=== PATIENT | male | born 1965 | race African-American/Black ===

== ENCOUNTER 2017-05-10 17:55 | Inpatient (IN) | payer OTHER ==
[~2017-05-10] VITALS: Ht 177.8 cm; Wt 59.4 kg
--- NOTE | 2017-05-10 17:58 | NUR ---
PT CHAU FROM HOME TO ER BED 10. PER REPORT PT WAS FOUND INSIDE HIS HOUSE PASSED OUT, COVERED W/ URINE AND FECES, UPON ARRIVAL PT IS AWAKE BUT VERY LETHARGIC AND C/O PAIN ALL OVER. EMS STATES HYPOTENSIVE AND WAS GIVEN FLUIDS. PT IS STILL HYPOTENSIVE AND TACHYCARDIC BARGE HAND. DR CHRISTOPHER AT BEDSIDE FOR EVAL. W/ ORDERS RECIEVED WILL CARRY OUT.
[2017-05-10] MEDS ORDERED: IV NS 0.9% 1,000 ML ONE ×2 (17:59→18:05)
[2017-05-10] MEDS ORDERED: IV SET PRIMARY 1 EA INFUS.SET MC ONE (17:59)
[2017-05-10] MEDS ORDERED: IV SET PRIMARY PUMP SET 1 EA INFUS.SET MC ONE ×5 (18:06→21:57)
--- NOTE | 2017-05-10 18:10 | NUR ---
BLOOD SURAG RECHECK 252. DR CHRISTOPHER AWARE.
--- NOTE | 2017-05-10 18:11 | NUR ---
DR CHRISTOPHER AT BEDSIDE FOR EVAL.
[2017-05-10] MEDS ORDERED: IV NS 0.9% 1,000 ML BAG IV ONE ×3 (18:30→21:00)
[2017-05-10] MEDS ORDERED: BLOOD SUGAR DIAGNOSTIC 1 EACH STRIP IN ONE (18:30)
[2017-05-10 18:33] LABS: ABG BASE EXCESS -6.9 mmol/L; ABG OXYGEN SATURATION 91.6 % (92.0-98.5); ABG PCO2 26.1 mmHg (35.0-45.0); ABG PH 7.415 (7.350-7.450); ABG PO2 70.5 mmHg (75.0-100.0); COHb 0.6 % (0.5-1.5); MetHb 0.5 % (0.0-1.5); O2Hb 90.6 % (94.0-97.0); SITE, ABG Left Radial; VENT MODE, BG RA
[2017-05-10 19:05] LABS: THYROID STIMULATING HORMONE 4.863 uIU/mL (0.358-3.74)
[2017-05-10] MEDS ORDERED: MULT-24 PO (19:05)
[2017-05-10] MEDS ORDERED: LORA10TA7 PO (19:05)
[2017-05-10] MEDS ORDERED: PROP10TA10 PO (19:05)
[2017-05-10] MEDS ORDERED: DABI150C PO (19:05)
[2017-05-10] MEDS ORDERED: TRAM50TA2 PO (19:05)
[2017-05-10] MEDS ORDERED: SPIR100T3 PO (19:05)
[2017-05-10] MEDS ORDERED: AMYL1CAP56 PO (19:05)
[2017-05-10] MEDS ORDERED: FURO40TA5 PO (19:05)
--- NOTE | 2017-05-10 19:15 | NUR ---
DR CHRISTOPHER BACK AT BEDSIDE FOR CENTRAL LINE PLACEMENT.
--- NOTE | 2017-05-10 20:12 | NUR ---
RADIOLOGY AT BEDSIDE FOR CHEST XRAY.
[2017-05-10] MEDS: NOREPINEPHRINE 8 MG in IV D5W 500 ML IV PRN (20:20)
[2017-05-10 20:23] LABS: BASOPHILS % (AUTO) 0.4 % (0.0-2.0); EOSINOPHILS % (AUTO) 0.4 % (0.0-6.0); HEMATOCRIT 27 % (39-51); HEMOGLOBIN 8.9 g/dL (13.5-17.5); LYMPHOCYTES # (AUTO) 0.2 /CMM (0.8-4.8); LYMPHOCYTES % (AUTO) 21.3 % (20.0-44.0); MEAN CORPUSCULAR HEMOGLOBIN 37 PG (26.0-33.0); MEAN CORPUSCULAR HGB CONC 34 g/dl (31.0-36.0); MEAN CORPUSCULAR VOLUME 109 fL (80-96); NEUTROPHILS # (AUTO) 0.7 /CMM (1.8-8.9); NEUTROPHILS % (AUTO) 74.9 % (43.0-81.0); PLATELET COUNT (AUTO) 52 /CMM (150-450); RED BLOOD CELL COUNT(AUTO) 2.43 MIL/uL (4.5-6.0)
--- NOTE | 2017-05-10 20:29 | NUR ---
LEVOPHED DRIP TITRATED TO 20MCG. VITAL SIGNS UPDATED. WILL CONTINUE TO MONITOR.
[2017-05-10 20:30] LABS: WHITE BLOOD COUNT (AUTO) 0.9 K/uL (4.3-11.0)
[2017-05-10 20:38] LABS: ACETAMINOPHEN 5 ug/ml (10-30); ALANINE AMINOTRANSFERASE 77 U/L (12-78); ALCOHOL, BLOOD 32 mg/dL (0-0); ALKALINE PHOSPHATASE 246 U/L (46-116); ASPARTATE AMINOTRANSFERASE 235 U/L (15-37); BILIRUBIN,DIRECT 4.2 mg/dL (0.0-0.2); CALCIUM, SERUM 6.1 mg/dL (8.5-10.1); CARBON DIOXIDE 13 mmol/L (21-32); CHLORIDE 108 mmol/L (98-107); CREATININE 1.9 mg/dL (0.6-1.3); GLUCOSE 203 mg/dL (74-106); POTASSIUM 3.4 mmol/L (3.5-5.1); SODIUM SERUM 141 mmol/L (136-145); TOTAL PROTEIN, SERUM 4.1 g/dL (6.4-8.2); UREA NITROGEN, BLOOD 13 mg/dL (7-18)
[2017-05-10 20:40] LABS: TROPONIN I < 0.017 ng/mL (0.00-0.056)
[2017-05-10 20:43] LABS: ALBUMIN 1.4 g/dL (3.4-5.0); SERUM AMMONIA 55 umol/L (11-32)
[2017-05-10 20:44] LABS: SALICYLATE < 2.0 mg/dL (2.8-20.0)
--- NOTE | 2017-05-10 20:50 | NUR ---
B/P 87/56. LEVOPHED TITRATED TO 30 MCG. WILL CONTINUE TO MONITOR.
--- NOTE | 2017-05-10 20:52 | NUR ---
PT TO RADIOLOGY FOR HEAD, NECK AND ABDOMINAL CT SCAN VIA [facility].
[2017-05-10 20:53] LABS: INR > 10.00 (0.87-1.13); PARTIAL THROMBOPLASTIN TIME 68 SEC (23-34); PROTHROMBIN TIME > 120.0 SECS (9.5-12.7)
[2017-05-10] MEDS ORDERED: VANCOMYCIN 1 GM in IV D5W 250 ML IV ONE (21:00)
[2017-05-10] MEDS ORDERED: MEROPENEM 500 MG in IV NS 0.9% 50 ML IV ONE (21:00)
[2017-05-10 21:11] LABS: BAND % (MANUAL) 16 % (0.0-5.0); LYMPHOCYTES % (MANUAL) 6 % (16-48); MONOCYTES % (MANUAL) 3 % (0-11.0); NEUTROPHILS % (MANUAL) 75 (42-76)
[2017-05-10 21:33] LABS: PROTHROMBIN TIME > 120.0 SECS (9.5-12.7)
[2017-05-10 21:34] LABS: INR > 10.00 (0.87-1.13)
[2017-05-10] MEDS ORDERED: IV NS 0.9% 1,000 ML IV PRN (21:37)
[2017-05-10] MEDS ORDERED: PHYTONADIONE INJ 10 MG/1 ML AMPUL ONE (21:38)
[2017-05-10] MEDS ORDERED: IV D5W 50 ML IV ONE (21:38)
--- NOTE | 2017-05-10 21:50 | NUR ---
PT B/P 131/78. LEVOPHED DRIP TITRATED DOWN TO 10 MCG. WILL CONTINUE TO MONITOR.
[2017-05-10] MEDS ORDERED: IV NS 0.9% 50 ML IV ONE (21:56)
[2017-05-10] MEDS ORDERED: MEROPENEM 500 MG VIAL IV ONE (21:56)
[2017-05-10] MEDS ORDERED: VANCOMYCIN 1 GM VIAL ONE (21:57)
--- NOTE | 2017-05-10 21:57 | NUR ---
U/S TECH AT BEDSIDE FOR ABDOMINAL ULTRASOUND.
[2017-05-10] MEDS ORDERED: PHYTONADIONE INJ 10 MG in IV D5W 50 ML IV ONE (22:00)
[2017-05-10] MEDS ORDERED: MORPHINE SULFATE INJ 2 MG/ML DISP.SYRIN IV PRN (22:00)
[2017-05-10] MEDS ORDERED: MAG HYDROX/AL HYDROX/SIMETH 30 ML UDC PO PRN (22:00)
[2017-05-10] MEDS ORDERED: MAGNESIUM HYDROXIDE 30 ML UDC PO PRN (22:00)
[2017-05-10] MEDS ORDERED: MEROPENEM 500 MG in IV NS 0.9% 50 ML IV SCH (22:00)
[2017-05-10] MEDS ORDERED: ACETAMINOPHEN 325 MG TABLET PO PRN (22:00)
[2017-05-10] MEDS ORDERED: ONDANSETRON HCL/PF 4 MG/2 ML VIAL IVP PRN (22:00)
--- NOTE | 2017-05-10 22:35 | NUR ---
REPORT GIVEN TO MANASA AT ICU. PT TYREL GTRANSFER TO FLOOR.
[2017-05-10] MEDS ORDERED: LORAZEPAM INJ 2 MG/ML VIAL ONE ×2 (22:44→23:51)
--- NOTE | 2017-05-10 22:45 | NUR ---
PT NOTED TO BE HAVING SEIZURE. DR ABAD MADE AWARE.
--- NOTE | 2017-05-10 22:49 | NUR ---
PT IS HAVING SEIZURE. ATIVAN 2MG IVP GIVEN PER ERMD VERBAL ORDER.
--- NOTE | 2017-05-10 23:05 | NUR ---
PT B/P 61/30 LEVOPHED TITRATED BACK TO 30 MCG. WILL CONTINUE TO MONITOR.
[2017-05-10] MEDS ORDERED: LORAZEPAM INJ 2 MG/ML VIAL IV PRN (23:30)
--- NOTE | 2017-05-10 23:58 | NUR ---
PT AGITATED POST ICTAL. DR ABAD MADE AWARE. VERBAL ORDER FOR ATIVAN 1MG IVP. CARRIED OUT.
[2017-05-11] VITALS (49 sets, daily range): BP systolic 40–120; BP diastolic 22–67
--- NOTE | 2017-05-11 00:19 | NUR ---
PT TRANSFERED TO FLOOR. CONDITION GUARDED.
[2017-05-11] MEDS ORDERED: IV NS 0.9% 1,000 ML ONE ×2 (00:37→05:08)
[2017-05-11] MEDS ORDERED: IV SET PRIMARY PUMP SET 1 EA INFUS.SET MC ONE ×5 (00:37→18:14)
[2017-05-11] MEDS ORDERED: NOREPINEPHRINE 4 MG/4 ML AMPUL IV ONE ×2 (00:48→03:53)
[2017-05-11] MEDS: NOREPINEPHRINE 8 MG in IV D5W 500 ML IV PRN ×3 (00:56→07:11)
--- NOTE | 2017-05-11 01:00 | NUR ---
CISCO NETWORK ARCHITECT: ER ADMISSION TO ROOM 252 PT RECEIVED IN BED FROM ER . FAMILY AT BEDSIDE. PT AWAKE CONFUSED AND AGITATED . PT ON NON-REBREATHER AT 15 L. SR ON MONITOR. SKIN ABRASIONS NOTED . PICTURES TAKEN . R FEMORAL TLC INTACT AND PATENT. PT ON LEVO PHED . DR POWERS AWARE AND GAVE ORDERS FOR SECOND PRESSOR IF NEEDED.WILL CONT TO MONITOR.
[2017-05-11] MEDS ORDERED: BLOOD IV SET 1 EA INFUS.SET MC ONE ×2 (01:15→06:01)
[2017-05-11] MEDS ORDERED: IV NS 0.9% 250 ML IV ONE (01:15)
--- NOTE | 2017-05-11 01:20 | NUR ---
RETANNED LEATHER ROLLER: PT O2 SAT 88% , SUCTIONED PT AND ELEVATED HOB . PT ON 15L NON REBREATHER MASK . DR POWERS AWARE AND GAVE ORDER FOR ABG .
--- NOTE | 2017-05-11 01:30 | NUR ---
BAND SAWMILL OPERATOR : ABG RESULTS READ TO DR POWERS . PH 6.97, CO2 51.4, O2 79, HCO3 11.6 . GAVE ORDER FOR INTUBATION AND ER CALLED. AT BEDSIDE AWARE OF PT CONDITION. PT IS FULL CODE.
[2017-05-11] MEDS ORDERED: PHENYLEPHRINE 10 MG/ML VIAL ONE ×4 (01:47→06:25)
[2017-05-11] MEDS ORDERED: IV D5W 250 ML IV ONE ×6 (01:48→06:25)
--- NOTE | 2017-05-11 01:50 | NUR ---
SCREWHEAD STONER AND POLISHER: PT WAS INTUBATED BY ER , DR AZUL . PT VOMITED 200ML OF GREEN CLEAR FLUID. PT SUCTIONED. CONNECTED TO VENT AND CXR DONE
[2017-05-11] MEDS: PHENYLEPHRINE 40 MG in IV D5W 250 ML IV PRN ×4 (01:58→07:56)
[2017-05-11] MEDS ORDERED: EPINEPHRINE (1:1000) 1 MG/ML AMPUL ONE ×2 (02:54→05:25)
--- NOTE | 2017-05-11 03:00 | NUR ---
HAND BRIM IRONER :ABG DONE ONE HOUR AFTER INTUBATION. ABG RESULTS CRITICAL . PAGED DR POWERS THREE TIMES FOR ORDERS AND NO CALL BACK . WIRE WINDING MACHINE OPERATOR AWARE . CALLED DR PLUNKETT AND HE SAID TO CALL BACK UP MD THROUGH [facility]. CALLED [facility] AND DR OCONNELL STATED HE WILL GET A HOLD OF PRIYA TO CALL THE UNIT BACK FOR ORDERS.
--- NOTE | 2017-05-11 03:00 | NUR ---
SECOND HELPER :CALLED RADIOLOGY TO HAVE STAT CXR READ , MONIQUE AWAIT RESULTS
[2017-05-11 03:02] LABS: SITE, ABG Right Femoral
[2017-05-11 03:03] LABS: ABG BASE EXCESS -19.4 mmol/L; ABG OXYGEN SATURATION 96.5 % (92.0-98.5); ABG PCO2 51.6 mmHg (35.0-45.0); ABG PH 6.972 (7.350-7.450); ABG PO2 145.9 mmHg (75.0-100.0); AaDO2 515.5 mmHg; COHb 0.3 % (0.5-1.5); MetHb 1.2 % (0.0-1.5); O2Hb 95.1 % (94.0-97.0); PEEP,BG 0 cm H2O; VT, ABG 450 mL
[2017-05-11] MEDS: EPINEPHRINE (1:1000) 1 MG in IV D5W 250 ML IV PRN ×4 (03:13→09:52)
--- NOTE | 2017-05-11 03:20 | NUR ---
MEDICAL OFFICE MANAGER CALLED ON-CALL FOR PELEG . FLOOR SERVICE WORKER SPRING GAVE ORDER FOR VENT CHANGES , BICARB , ABG AT 8 AM , NGT TO LIS, 1:1 NURSING CARE, FC INSERTION, DIPRIVAN PRN.
[2017-05-11] MEDS ORDERED: SODIUM BICARBONATE SYR 50 MEQ/50 ML DISP.SYRIN ONE ×2 (03:25→16:11)
[2017-05-11] MEDS ORDERED: SODIUM BICARBONATE SYR 50 MEQ/50 ML DISP.SYRIN IV ONE ×4 (03:30→19:24)
--- NOTE | 2017-05-11 04:50 | NUR ---
GLOVE MACHINE OPERATOR: DR POWERS IS AWARE THAT PT IS MAXED OUT ON 3 VASOPRESSORS AND BP IS 75/54. GAVE ORDER FOR 1L BOLUS AND NO PEEP . RT AWARE. Addendum: 05/11/17 at 0635 by FARHANA ZAMORA RN ALSO GAVE ORDER TO START VASOPRESSIN AND IS AWARE THAT IS REQUESTING TO SEE HIM .
[2017-05-11] MEDS ORDERED: IV NS 0.9% 1,000 ML BAG IV PRN ×2 (05:00→16:30)
[2017-05-11] MEDS ORDERED: IV NS 0.9% 1,000 ML BAG IV ONE (05:00)
[2017-05-11] MEDS ORDERED: VASOPRESSIN INJ 20 UNIT/ML VIAL ONE (05:17)
[2017-05-11] MEDS ORDERED: IV D5W 500 ML IV ONE (05:18)
[2017-05-11] MEDS: VASOPRESSIN INJ 50 UNIT in IV D5W 497.5 ML IV PRN ×2 (05:40→17:20)
--- NOTE | 2017-05-11 06:00 | NUR ---
RISK CONTROL DIRECTOR: STAT CXR READ AND DR ABAD ORDERED TO READJUST ETT BY PULLING BACK 1.5-2 CM . RT SOY AWARE AND READJUSTED . STAT CXR DONE AFTER.
[2017-05-11 06:10] LABS: EOSINOPHILS % (AUTO) 0.6 % (0.0-6.0); HEMATOCRIT 24 % (39-51); HEMOGLOBIN 8.1 g/dL (13.5-17.5); LYMPHOCYTES # (AUTO) 0.3 /CMM (0.8-4.8); LYMPHOCYTES % (AUTO) 12.5 % (20.0-44.0); MEAN CORPUSCULAR HEMOGLOBIN 37 PG (26.0-33.0); MEAN CORPUSCULAR HGB CONC 34 g/dl (31.0-36.0); MEAN CORPUSCULAR VOLUME 109 fL (80-96); MONOCYTES % (AUTO) 1.1 % (2.0-12.0); NEUTROPHILS # (AUTO) 2.2 /CMM (1.8-8.9); NEUTROPHILS % (AUTO) 85.8 % (43.0-81.0); RDW COEFFICIENT OF VARIATION 14.8 (11.5-15.0); RED BLOOD CELL COUNT(AUTO) 2.22 MIL/uL (4.5-6.0)
[2017-05-11 06:15] LABS: PLATELET COUNT (AUTO) 31 /CMM (150-450); WHITE BLOOD COUNT (AUTO) 2.6 K/uL (4.3-11.0)
--- NOTE | 2017-05-11 06:15 | NUR ---
RT END OF THE SHIFT REPORT: PT. 52 Y OLD MALE REC. IN ICU AND CALLED FOR STAT ABG. POST ABG CRITICAL RESULTS READ TO ER DR. ABAD, INTUBATION ORDERED X3 RT ASSIST INTUBATION PT. VOMITED DURING AMBU BAGGING. AT 0150 INTUBATED AM GOOD COLOR EXCHANGE NOTED B/S EQUAL BILATERALLY BY DR. ABAD. PLACED ETT # 7.5 @ 23 CM LIP LINE, MECHANICAL VENTILATION STARTED WITH NOTED SETTING, @0345 VENT CHANGES POST INTUBATION ABG PER DR. THOMSON, (VT 550, AND ADD PEEP+5) AT 0500 TOOK PEEP OFF PER DR. POWERS @0615 ETT TUBE ADJUSTED 21.[address] ABAD ORDER POST XRAY RESULT ALARMS ARE SET AND FUNCTIONAL,. B/S BILATERALLY RALES AND CHEST RAISE NOTED, PT. STABLE AND REPORT WILL BE PASS TO AM SHIFT. AMBU BAG AT THE BEDSIDE. VENT IN THE RED OUTLET Addendum: 05/11/17 at 0627 by SOY MASTERS RT Amended: Links added.
--- NOTE | 2017-05-11 06:16 | NUR ---
WORKFORCE MANAGEMENT COORDINATOR : PT HAS NO URINE OUTPUT THROUGHOUT SHIFT AND AFTER BOLUS. PT IS MAXED OUT ON ALL FOUR DRIPS AND BP IS STILL 73/56. CRITICAL LAB VALUES OF PLATELETS 31 , WBC 2.6 , GLUCOSE 358, ALBUMIN 1.4 , AND MG 0.[address] POWERS AWARE OF PTS CURRENT STATUS AND GAVE ORDER FOR MG 2GM IV.
[2017-05-11 06:20] LABS: BILIRUBIN,TOTAL 5.6 mg/dL (0.2-1.0); CALCIUM, SERUM 6.1 mg/dL (8.5-10.1); CREATININE 3.1 mg/dL (0.6-1.3); PHOSPHORUS 5.8 mg/dL (2.5-4.9); POTASSIUM 3.8 mmol/L (3.5-5.1)
[2017-05-11 06:25] LABS: ALBUMIN 1.4 g/dL (3.4-5.0); MAGNESIUM 0.7 mg/dL (1.8-2.4)
[2017-05-11] MEDS ORDERED: Magnesium 1 GM/2 ML VIAL IV ONE (06:30)
[2017-05-11] MEDS ORDERED: Magnesium 1GM/D5W 100ML PREMIX 100 ML IV ONE ×2 (06:31→07:31)
--- NOTE | 2017-05-11 06:53 | NUR ---
PLASTER CASTER : CALLED PHARMACY AND REQUESTED REFILL OF ALL DRIPS
[2017-05-11] MEDS ORDERED: NOREPINEPHRINE 16 MG in IV D5W 500 ML IV PRN (07:00)
--- NOTE | 2017-05-11 07:00 | NUR ---
FREIGHT CAR INSPECTOR : THIRD UNIT OF [facility] IS STILL RUNNING. ENDORSED TO AM SHIFT TO DO CBC AFTER 4TH AND LAST UNIT.
[2017-05-11 07:05] LABS: BAND % (MANUAL) 9 % (0.0-5.0); LYMPHOCYTES % (MANUAL) 10 % (16-48); MONOCYTES % (MANUAL) 4 % (0-11.0); NEUTROPHILS % (MANUAL) 77 (42-76)
--- NOTE | 2017-05-11 07:41 | NUR ---
DEPOSITING MACHINE OPERATOR : CALLED AND UPDATED ON HUSBANDS CURRENT STATUS.
--- NOTE | 2017-05-11 07:56 | NUR ---
WOUND CARE CONSULT WOUND RN UNABLE TO PERFORM SKIN ASSESSMENT PATIENT HEMODYNAMICALLY UNSTABLE. PATIENT ON 3 PRESSORS MAXIMUM DOSAGES. PHOTO IMAGES REVIEWED. RECOMMEND CONTINUE TURNING SCHED Q 2 HOURS PATIENT CONDITION PERMITS, BILATERAL HEEL FLOATING, Z GUARD FOR SKIN/MOISTURE MANAGEMENT. PATIENT WITH CURRENT MARCOS AT 8. RECOMMEND 1ST STEP LOW AIRLOSS MATTRESS FOR SKIN MANAGEMENT IN HIGH RISK PATIENT. ALL DISCUSSED WITH NURSING STAFF AT THE BEDSIDE. WILL SEE PATIENT CONDITION PERMITS
[2017-05-11] MEDS ORDERED: Magnesium 1GM/D5W 100ML PREMIX 100 ML IV SCH ×2 (08:00→17:41)
[2017-05-11] MEDS ORDERED: Z GUARD REMEDY 2 OZ OINT TP PRN (08:00)
--- NOTE | 2017-05-11 08:00 | NUR ---
patient received on vent;responds to pain;pt afebrile;patient on vasopressin,levophed;neosynephrine and epinephrine gtts at max doses for bp support;bp cont low;vent settings-ac 20/550/100% with sats >70%;sinus rhythm on tele;ngt to lis with scant amounts of bloody output;xie to dd with scant amount of clear yellow urine noted;right head abrasion and right posterior shoulder abrasion noted;Dr Torres at bedside talking to family;pt received 2 amps of bicarb per order and repeat abg done;will cont to monitor
[2017-05-11 08:31] LABS: ABG BASE EXCESS -11.8 mmol/L; ABG PCO2 38.4 mmHg (35.0-45.0); ABG PH 7.213 (7.350-7.450); ABG PO2 76.4 mmHg (75.0-100.0); AaDO2 598.2 mmHg; COHb 0.7 % (0.5-1.5); MetHb 1.1 % (0.0-1.5); O2Hb 90.3 % (94.0-97.0); PEEP,BG 5 cm H2O; SITE, ABG Left Brachial; VT, ABG 550 mL
[2017-05-11] MEDS ORDERED: Z GUARD REMEDY 2 OZ OINT TP SCH (09:00)
[2017-05-11] MEDS ORDERED: NEOMY SULF/BACITRAC ZN/POLY 15 GM TUBE TP SCH (09:00)
[2017-05-11] MEDS ORDERED: PANTOPRAZOLE 40 MG VIAL IV SCH (09:00)
[2017-05-11] MEDS ORDERED: MEROPENEM 500 MG in IV NS 0.9% 50 ML IV SCH (09:00)
[2017-05-11] MEDS: HYDROCORTISONE SOD SUCCINATE 100 MG/2 ML VIAL IV SCH ×3 (09:02→17:13)
[2017-05-11] MEDS ORDERED: FEE PK DOSING 1 MIN EA MC ONE (09:23)
[2017-05-11] MEDS ORDERED: Sodium Bicarbonate 150 MEQ in IV D5W 1,000 ML IV PRN (09:30)
[2017-05-11] MEDS: PENTOXIFYLLINE 400 MG TABLET.SA PO SCH ×3 (10:00→17:43)
[2017-05-11] MEDS ORDERED: prednisoLONE 5 MG/5 ML UDC PO SCH (10:00)
[2017-05-11] MEDS: Magnesium 1GM/D5W 100ML PREMIX 100 ML IV SCH ×3 (10:00→11:56)
[2017-05-11] MEDS ORDERED: Calcium Gluconate 1GM/10ML 4.65 MEQ in IV D5W 50 ML IV ONE (10:00)
--- NOTE | 2017-05-11 10:00 | NUR ---
Dr Torres on floor answering family questions;pt more awake and following simple commands;pt with copious amounts of oral secretions;electrolytes replaced per order;will cont to monitor;pressors cont on max doses
[2017-05-11] MEDS ORDERED: PHYTONADIONE INJ 10 MG/1 ML AMPUL SQ STA (10:04)
[2017-05-11] MEDS ORDERED: IV NS 0.9% 500 ML IV ONE (10:15)
[2017-05-11] MEDS: NOREPINEPHRINE 16 MG in IV D5W 500 ML IV PRN ×3 (10:26→17:14)
[2017-05-11] MEDS ORDERED: PHENYLEPHRINE 80 MG in IV D5W 250 ML IV PRN (10:30)
[2017-05-11] MEDS ORDERED: ROCURONIUM BROMIDE 100 MG/10 ML VIAL IV ONE (11:08)
[2017-05-11] MEDS ORDERED: ETOMIDATE 2 MG/ML VIAL IV ONE ×2 (11:08)
[2017-05-11] MEDS ORDERED: ROCURONIUM BROMIDE 50 MG/5 ML IV ONE (11:08)
--- NOTE | 2017-05-11 13:00 | NUR ---
patient agitated and restless;pulling on tubes;propofol started per order;pressors cont at max doses;cvp set up via right femoral triple lumen catheter;cvp-43;ANTIQUE CLOCK REPAIRER-Negrette aware;family at bedside
[2017-05-11] MEDS: PROPOFOL 100 ML IV PRN ×2 (13:43→19:03)
[2017-05-11] MEDS: EPINEPHRINE (1:1000) 2 MG in IV D5W 250 ML IV PRN ×2 (13:44→17:19)
--- NOTE | 2017-05-11 15:00 | NUR ---
no changes in health status;pt cont on max dose epinephrine,neosynephrine,levophed and vasopresssin;pt cont with only 30cc urine output since 1000;Dr Foster aware;Dr Foster spoke with family re:possible future dialysis;
[2017-05-11 15:02] LABS: CREATININE 3.5 mg/dL (0.6-1.3); PHOSPHORUS 7.6 mg/dL (2.5-4.9); POTASSIUM 3.9 mmol/L (3.5-5.1)
[2017-05-11 15:07] LABS: MAGNESIUM 1.2 mg/dL (1.8-2.4)
[2017-05-11] MEDS ORDERED: Magnesium 1GM/D5W 100ML PREMIX PIGGYBACK IV ONE (16:00)
[2017-05-11] MEDS ORDERED: EPINEPHRINE (1:10,000) SYRINGE 1 MG/10 ML DISP.SYRIN ONE (16:11)
[2017-05-11] MEDS ORDERED: ALBUMIN 25% 12.5 GM/50 ML BOTTLE IV ONE (16:30)
[2017-05-11] MEDS ORDERED: Sodium Bicarbonate 100 MEQ in IV 1/2NS 1000 ML 1,000 ML IV PRN (17:00)
[2017-05-11] MEDS ORDERED: ALBUMIN 25% 25 GM in PREMIX 1 EA IV SCH ×4 (17:00)
[2017-05-11] MEDS ORDERED: INSULIN REGULAR, HUMAN 100 UNIT in IV NS 0.9% 99 ML IV PRN ×2 (17:00)
--- NOTE | 2017-05-11 17:00 | NUR ---
lab result for blood sugar-612;PACKAGING SALES-Negrette aware;orders received for insulin gtt per protocol;finger sticks x2 reading high;stat laboratory glucose requested;pt cont maxed out on all 4 pressors with bp low;
[2017-05-11] MEDS ORDERED: VANCOMYCIN 500 MG in IV D5W 100 ML IV SCH (18:00)
[2017-05-11] MEDS ORDERED: LORAZEPAM INJ 2 MG/ML VIAL IV PRN ×2 (18:00)
--- NOTE | 2017-05-11 18:15 | NUR ---
Insulin gtt started per order at 9.18units/hr;no changes in health status;pt cont maxed out on all 4 pressors and maxed out on propofol;will cont to monitor
[2017-05-11] MEDS ORDERED: EPINEPHRINE (1:10,000) SYRINGE 1 MG/10 ML DISP.SYRIN IVP ONE (19:24)
[2017-05-11 19:46] LABS: AMYLASE 782 U/L (25-115); LIPASE 58 U/L (73-393)
--- NOTE | 2017-05-11 20:09 | NUR ---
QUALITY PROCESS AUDITOR NOTES RECEIVED PT IN CRITICAL STATE. CARDIAC RHYTHM CHANGE NOTED. PEA UPON ASSESSMENT. 1917 - CODE BLUE INITIATED. ACLS PROTOCOL INITIATED WITH CHEST COMPRESSION AND BAGGING. AND DAUGHTER OUTSIDE OF ROOM. DR BAKER LEADING THE CODE BLUE. PT IS ON MAX DOSE OF LEVO, MAHENDRA, VASO AND EPI DRIPS. 1924 - EPI X1 AND BICARB X1 GIVEN. PT REMAINS PEA. DR BAKER MADE FAMILY AWARE AND FAMILY DECIDED TO STOP COMPRESSIONS AND BAGGING. PT PRONOUNCED AT [address] BAKER. 1927 - DR POWERS MADE AWARE. 1937 - ARTIE FROM [facility] NOTIFIED. PT DOES NOT QUALIFY. CASE #[id number] 1945 - SILKE FROM [facility] SCREEN OPERATOR'S OFFICE NOTIFIED. CASE CLOSED. 1949 - NURSING FORGING ENGINEER LIEN FROM ADMITTING NOTIFIED. FAMILY GRIEVING AT BEDSIDE AT THIS TIME.
[2017-05-11] MEDS ORDERED: METRONIDAZOLE 500MG/ NS 100ML 500 MG in PREMIX 1 EA IV SCH (21:00)
[2017-05-11] MEDS ORDERED: IV NS 0.9% 2,000 ML IV ONE (22:00)
--- NOTE | 2017-05-11 22:34 | NUR ---
POST MORTEM NOTES PT REMAINS CLEANED, TUBES REMOVED. TAGS PLACED ON LEFT TOE AND OUTSIDE OF BODY BAG. TERESE () SIGNED PAPERWORK AND HOSPITAL CONTACT INFORMATION GIVEN. PT REMAINS PICKED UP BY TWO SECURITY GUARDS AND TAKEN TO [facility], ACCOMPANIED BY MYSELF.
[2017-05-12] MEDS ORDERED: prednisoLONE 5 MG/5 ML UDC PO SCH (09:00)
== END 2017-05-11 19:25 | disposition expired | DRG 871 ==
LOC: ER 17:56 → ICU 21:41
PROVIDERS: ADMIT Internal Medicine; ATTEND Internal Medicine
PROC: 06H033Z Insertion of Infusion Device into Inferior Vena Cava, Percutaneous Approach (ICD-10-PCS; 2017-05-10)
PROC: B549ZZA Ultrasonography of Inferior Vena Cava, Guidance (ICD-10-PCS; 2017-05-10)
PROC: 5A1935Z Respiratory Ventilation, Less than 24 Consecutive Hours (ICD-10-PCS; principal; 2017-05-11)
PROC: 0BH17EZ Insertion of Endotracheal Airway into Trachea, Via Natural or Artificial Opening (ICD-10-PCS; 2017-05-11)
PROC: 30233K1 Transfusion of Nonautologous Frozen Plasma into Peripheral Vein, Percutaneous Approach (ICD-10-PCS; 2017-05-11)
DX: A41.50 Gram-negative sepsis, unspecified (principal); J69.0 Pneumonitis due to inhalation of food and vomit; J15.6 Pneumonia due to other Gram-negative bacteria; E43 Unspecified severe protein-calorie malnutrition; N17.0 Acute kidney failure with tubular necrosis; R65.21 Severe sepsis with septic shock; D65 Disseminated intravascular coagulation [defibrination syndrome]; G92 Toxic encephalopathy; J96.01 Acute respiratory failure with hypoxia; J96.02 Acute respiratory failure with hypercapnia; K55.059 Acute (reversible) ischemia of intestine, part and extent unspecified; E87.2 Acidosis; K86.1 Other chronic pancreatitis; D61.818 Other pancytopenia; M62.82 Rhabdomyolysis; N39.0 Urinary tract infection, site not specified; K35.80 Unspecified acute appendicitis; K55.9 Vascular disorder of intestine, unspecified; K81.0 Acute cholecystitis; D72.825 Bandemia; R56.9 Unspecified convulsions; Z87.820 Personal history of traumatic brain injury; Z86.718 Personal history of other venous thrombosis and embolism; D69.6 Thrombocytopenia, unspecified; R74.0 Nonspecific elevation of levels of transaminase and lactic acid dehydrogenase [LDH]; D70.9 Neutropenia, unspecified; F43.10 Post-traumatic stress disorder, unspecified; E78.1 Pure hyperglyceridemia; K72.90 Hepatic failure, unspecified without coma; D53.9 Nutritional anemia, unspecified; S00.03XA Contusion of scalp, initial encounter; W19.XXXA Unspecified fall, initial encounter; Z79.01 Long term (current) use of anticoagulants; E83.51 Hypocalcemia; E83.42 Hypomagnesemia; F10.20 Alcohol dependence, uncomplicated; R91.8 Other nonspecific abnormal finding of lung field; F17.200 Nicotine dependence, unspecified, uncomplicated
CPT/HCPCS: 31720; 36415; 36600; 70450-TC; 71010-TC; 71250-TC; 72125-TC; 72192-TC; 74000-TC; 74150-TC; 76700-TC; 80048-TC; 80076-TC; 82140-TC; 82150-TC; 82550-TC; 82553-TC; 82945-TC; 82962-TC; 83605-TC; 83690-TC; 83735-TC; 84100-TC; 84443-TC; 84484-TC; 85025-TC; 85385-TC; 85610-TC; 85730-TC; 86850-TC; 87040-TC; 87081-TC; 87186-TC; 92950-TC; 93307-TC; 93978-TC; 93979-TC; 94002-TC; 94640-TC; 95819-TC; A4216; A4606; A6402; C1751; C9113; G0480; J0171; J0610; J1720; J1815; J2060; J2185; J2370; J3370; J3430; J3475; J3490; J7030; J7040; J7050; J7060; J7070; J7510; P9017-BL; P9047; Z7610